=== PATIENT | male | born 1960 | race Caucasian/White ===

== ENCOUNTER 2018-03-13 22:01 | Inpatient (IN) | payer SELFPAY ==
[~2018-03-13] VITALS: Ht 175.3 cm; Wt 70.9 kg
[2018-03-14] VITALS (21 sets, daily range): BP systolic 124–234; BP diastolic 59–94; PULSE 58–83; RESP 11–23; TEMP 97.9–98.7; O2SAT 98–100
[2018-03-14] MEDS: SODIUM CHLOR 0.9% 1000 ML INJ 1,000 ML IV SCH ×3 (03:26→19:37)
--- NOTE | 2018-03-14 03:26 | HHI.HP ---
HPI Service Critical Care Medicine Primary Care Physician Non-Staff Admission Diagnosis Diagnosis: Travel History International Travel<30 Days: No Contact w/Intl Traveler <30 Da: No Traveled to Known Affected Are: No History of Present Illness 57-year-old gentleman with history of diabetes, coronary artery disease, dyslipidemia, hypertension, multiple CVAs, presented to emergency department at the [facility] with complaints of right-sided weakness and slurred speech. The patient has associated symptoms of 45 minutes of slurred speech that resolved on presentation to emergency department. His right-sided weakness also resolved. Per EMS and medical records reports the symptoms has resolved en rout to the hospital at [place]. Patient has been taking aspirin and Plavix. He denies any head trauma headaches, visual changes, fever, confusion, neurological deficit or any other symptoms. In emergency at [facility] he was found to be in acute renal failure with creatinine of 2.45 and potassium level of 6.9. He has been transferred to [facility] for higher level of care and nephrology consultation. Review of Systems Constitutional: DENIES: Diaphoretic episodes, Fatigue, Fever, Weight gain, Weight loss, Chills, Dizziness, Change in appetite, Night Sweats Endocrine: DENIES: Heat/cold intolerance, Polydipsia, Polyuria, Polyphagia Eyes: DENIES: Blurred vision, Diplopia, Eye inflammation, Eye pain, Vision loss , Photosensitivity, Double Vision Ears, nose, mouth, throat: DENIES: Tinnitus, Hearing loss, Vertigo, Nasal discharge, Oral lesions, Throat pain, Hoarseness, Ear Pain, Running Nose, Epistaxis, Sinus Pain, Toothache, Odynophagia Respiratory: DENIES: Apneas, Cough, Snoring, Wheezing, Hemoptysis, Sputum production, Shortness of breath Cardiovascular: DENIES: Chest pain, Palpitations, Syncope, Dyspnea on Exertion , PND, Lower Extremity Edema, Orthopnea, Claudication Gastrointestinal: DENIES: Abdominal pain, Black stools, Bloody stools, Constipation, Diarrhea, Nausea, Vomiting, Difficulty Swallowing, Anorexia Genitourinary: DENIES: Sexual dysfunction, Urinary frequency, Urinary incontinence, Urgency, Hematuria, Dysuria, Nocturia, Penile Discharge, Testicular Pain, Testicular Swelling Musculoskeletal: DENIES: Joint pain, Muscle aches, Stiffness, Joint Swelling, Back pain, Neck pain Integumentary: DENIES: Abnormal pigmentation, Nail changes, Pruritus, Rash Hematologic/lymphatic: DENIES: Bruising, Lymphadenopathy Immunologic/allergic: DENIES: Eczema, Urticaria Neurologic: COMPLAINS OF: Localized weakness, Speech Problems, Poor Balance, DENIES: Abnormal gait, Headache, Paresthesias, Seizures, Tremor Psychiatric: DENIES: Anxiety, Confusion, Mood changes, Depression, Hallucinations, Agitation, Suicidal Ideation, Homicidal Ideation, Delusions Past Family Social History Allergies: Coded Allergies: No Known Allergies (Verified Allergy, Unknown, 03/14/18) Past Medical History Diabetes mellitus Dyslipidemia Coronary artery disease -status post CABG Hypertension Chronic kidney insufficiency Past Surgical History CABG Appendectomy Reported Medications Aspirin Atorvastatin Carvedilol Cyproheptadine Fenofibrate Gabapentin Insulin Lantus Reglan [place]-3 Vitamin B Prozac Plavix Lisinopril [place] Active Ordered Medications Current Medications Medications (Trade) Dose Ordered Sig/Elias Route PRN Reason Start Time Stop Time Status Last Admin Dose Admin Sodium Chloride 1,000 ml @ 184 mls/hr Q5H27M IV 03/14/18 03:26 Sodium Chloride (NS Flush) 2 ml UNSCH PRN IV FLUSH FLUSH AFTER USING IV ACCESS 03/14/18 03:30 Sodium Chloride (NS Flush) 2 ml BID IV FLUSH 03/14/18 09:00 Acetaminophen (Tylenol) 650 mg Q6H PRN PO FEVER >101F 03/14/18 03:30 Oxycodone/ Acetaminophen (Percocet 5-325 Mg) 1 tab Q4H PRN PO PAIN SCALE 1 TO 5 03/14/18 03:30 03/14/18 04:17 Famotidine (Pepcid Inj) 10 mg Q12HR IV PUSH 03/14/18 09:00 Ondansetron HCl (Zofran Odt) 4 mg Q6H PRN PO NAUSEA OR VOMITING 03/14/18 04:00 Temazepam (Restoril) 15 mg HS PRN PO INSOMNIA 03/14/18 03:30 Albuterol/ Ipratropium (Duoneb Neb) 1 ampule Q2HR NEB PRN INH WHEEZING 03/14/18 03:30 Heparin Sodium (Porcine) (Heparin Inj) 5,000 units Q8H SQ 03/14/18 06:00 Miscellaneous Information [place] [place] 1 Q361D XX 03/14/18 03:30 Chlorhexidine Gluconate (Chlorhexidine 2% Cloth) 3 pack Taper DAILY@04 TOP 03/14/18 04:00 03/10/19 03:59 Chlorhexidine Gluconate (Chlorhexidine 2% Cloth) 3 pack UNSCH PRN TOP HYGIENIC CARE 03/14/18 03:30 Senna/Docusate Sodium (Sera-Colace) 1 tab BID PO 03/14/18 09:00 Magnesium Hydroxide (Milk Of Magnesia Liq) 30 ml Q12H PRN PO Mild constipation 03/14/18 03:30 Sennosides (Senokot) 17.2 mg Q12H PRN PO Moderate constipation 03/14/18 03:30 Bisacodyl (Dulcolax Supp) 10 mg DAILY PRN RECTAL SEVERE CONSITIPATION 03/14/18 03:30 Lactulose (Lactulose Liq) 30 ml DAILY PRN PO SEVERE CONSITIPATION 03/14/18 03:30 Dextrose (D50w (Vial) Inj) 50 ml UNSCH PRN IV PUSH HYPOGLYCEMIA-SEE COMMENTS 03/14/18 03:45 Glucagon (Glucagon Inj) 1 mg UNSCH PRN OTHER HYPOGLYCEMIA-SEE COMMENTS 03/14/18 03:45 Insulin Aspart (NovoLOG SUPPLEMENTAL SCALE) 1 ACHS SLIDING SCALE SQ 03/14/18 08:00 Labetalol HCl (Trandate Inj) 10 mg Q4H PRN IV PUSH SBP>160, DBP>90 03/14/18 04:15 03/14/18 04:31 Family History No family history significant of malignancy Social History Smokes cigarette occasionally Denies history of alcohol or illicit drug abuse Physical Exam Physical Exam GENERAL: Well-nourished, well-developed patient. SKIN: Warm and dry. HEAD: Normocephalic. EYES: No scleral icterus. No injection or drainage. NECK: Supple, trachea midline. No JVD or lymphadenopathy. CARDIOVASCULAR: Regular rate and rhythm without murmurs, gallops, or rubs. RESPIRATORY: Breath sounds equal bilaterally. No accessory muscle use. GASTROINTESTINAL: Abdomen soft, non-tender, nondistended. MUSCULOSKELETAL: No cyanosis, or edema. BACK: Nontender without obvious deformity. NEURO EXAM: GCS: 15 Mental Status: The patient is alert and oriented to person, place, and time with normal speech. Imaging CT head results from [facility] reviewed/no acute process identified Caprini VTE Risk Assessment Caprini VTE Risk Assessment: Mod/High Risk (score >= 2) Caprini Risk Assessment Model Point Value = 1 Point Value = 2 Point Value = 3 Point Value = 5 Age 41-60 Minor surgery BMI > 25 kg/m2 Swollen legs Varicose veins or History of unexplained or recurrent spontaneous Oral contraceptives or hormone replacement Sepsis (< 1 month) Serious lung disease, including pneumonia (< 1 month) Abnormal pulmonary function Acute myocardial infarction Congestive heart failure (< 1 month) History of inflammatory bowel disease Medical patient at bed rest Age 61-74 Arthroscopic surgery Major open surgery (> 45 min) Laparoscopic surgery (> 45 min) Malignancy Confined to bed (> 72 hours) Immobilizing plaster cast Central venous access Age >= 75 History of VTE Family history of VTE Factor V Leiden Prothrombin [id number] Lupus anticoagulant Anticardiolipin antibodies Elevated serum homocysteine Heparin-induced thrombocytopenia Other congenital or acquired thrombophilia Stroke (< 1 month) Elective arthroplasty Hip, pelvis, or leg fracture Acute spinal cord injury (< 1 month) Prophylaxis Regimen Total Risk Factor Score Risk Level Prophylaxis Regimen 0-1 Low Early ambulation 2 Moderate Order ONE of the following: *Sequential Compression Device (SCD) *Heparin 5000 units SQ BID 3-4 Higher Order ONE of the following medications: *Heparin 5000 units SQ TID *Enoxaparin/Lovenox 40 mg SQ daily (WT < 150 kg, CrCl > 30 mL/min) *Enoxaparin/Lovenox 30 mg SQ daily (WT < 150 kg, CrCl > 10-29 mL/min) *Enoxaparin/Lovenox 30 mg SQ BID (WT < 150 kg, CrCl > 30 mL/min) AND/OR *Sequential Compression Device (SCD) 5 or more Highest Order ONE of the following medications: *Heparin 5000 units SQ TID (Preferred with Epidurals) *Enoxaparin/Lovenox 40 mg SQ daily (WT < 150 kg, CrCl > 30 mL/min) *Enoxaparin/Lovenox 30 mg SQ daily (WT < 150 kg, CrCl > 10-29 mL/min) *Enoxaparin/Lovenox 30 mg SQ BID (WT < 150 kg, CrCl > 30 mL/min) AND *Sequential Compression Device (SCD) Assessment and Plan Assessment and Plan Acute kidney injury -With hyperkalemia -Admit to ICU -EKG stat -Aggressive IV fluid hydration -Repeat labs -Nephrology consultation CVA/TIA -Aspirin, Plavix, atorvastatin -MRI brain -Neurology consultation Diabetes mellitus -Insulin sliding scale -Resume home regiment of Lantus when dosing available Hypertension -Continue carvedilol -Hold lisinopril due to acute renal failure with hyperkalemia Coronary artery disease -Aspirin -Atorvastatin -Plavix Peripheral vascular disease -Cyproheptadine Dyslipidemia -Fenofibrate -Atorvastatin Neuropathy -Gabapentin DVT GI prophylaxis -Juan's and SCDs -Subcu heparin -Pepcid Critical Care: The total critical care time was 35 minutes. Time to perform other separately billable procedures was not included in the critical care time. Ken Lombardo MD March 14, 2018 03:25
[2018-03-14] MEDS ORDERED: LACTULOSE SYRUP 20 GM/30 ML CUP PO PRN (03:30)
[2018-03-14] MEDS ORDERED: MAGNESIUM HYDROXIDE SUSP 30 ML CUP PO PRN (03:30)
[2018-03-14] MEDS ORDERED: SODIUM CHLORIDE 0.9% FLUSH 10 ML FLUSH IV FLUSH PRN (03:30)
[2018-03-14] MEDS ORDERED: ACETAMINOPHEN 325 MG TAB PO PRN (03:30)
[2018-03-14] MEDS ORDERED: SENNOSIDES 8.6 MG TAB PO PRN (03:30)
[2018-03-14] MEDS ORDERED: TEMAZEPAM 15 MG CAP PO PRN (03:30)
[2018-03-14] MEDS ORDERED: BISACODYL 10 MG SUPP RECTAL PRN (03:30)
[2018-03-14] MEDS ORDERED: NURSING INFORMATION XX SCH (03:30)
[2018-03-14] MEDS ORDERED: RESP: ALBUTEROL 2.5 MG/IPRATROPIUM 0.5 MG NEB (PRN) INH (03:30)
[2018-03-14] MEDS ORDERED: CHLORHEXIDINE GLUCONATE 2 % 1 PACK (2 CLOTHS) TOP PRN (03:30)
[2018-03-14] MEDS ORDERED: SODIUM BICARBONATE 8.4% INJ 50 MEQ/50 ML SYR IV PUSH ONE (03:45)
[2018-03-14] MEDS ORDERED: DEXTROSE 50% IN WATER 50 ML VIAL(D50) IV PUSH ONE (03:45)
[2018-03-14] MEDS ORDERED: INSULIN HUMAN REGULAR 1,000 UNITS/10 ML VIAL IV PUSH ONE (03:45)
[2018-03-14] MEDS ORDERED: DEXTROSE 50% IN WATER 50 ML VIAL(D50) IV PUSH PRN (03:45)
[2018-03-14] MEDS ORDERED: SODIUM POLYSTYRENE SULFONATE SUSP 15 GM/60 ML CUP PO ONE (03:45)
[2018-03-14] MEDS ORDERED: GLUCAGON 1 MG/ML VIAL OTHER PRN (03:45)
[2018-03-14] MEDS ORDERED: CALCIUM GLUCONATE INJ 2 GM in DEXTROSE 5% IN WATER 100ML INJ 100 ML IV ONE ×2 (03:45)
[2018-03-14] MEDS ORDERED: ONDANSETRON ODT 4 MG TAB PO PRN (04:00)
[2018-03-14] MEDS: CHLORHEXIDINE GLUCONATE 2 % 1 PACK (2 CLOTHS) TOP SCH (04:00)
[2018-03-14 04:08] LABS: AUTOMATED NEUTROPHIL # 3.6 TH/MM3 (1.8-7.7); BASOPHIL % 0.8 % (0.0-2.0); EOSINOPHIL # 0.3 TH/MM3 (0-0.4); EOSINOPHIL % 4.4 % (0.0-4.0); HEMATOCRIT 37.9 % (39.0-51.0); HEMOGLOBIN 12.8 GM/DL (13.0-17.0); LYMPH % 26.7 % (9.0-44.0); LYMPHOCYTE # 1.6 TH/MM3 (1.0-4.8); MEAN CELL VOLUME 91.8 FL (80.0-100.0); MEAN CORPUSCULAR HGB CONC 33.7 % (32.0-36.0); MEAN PLATELET VOLUME 8.9 FL (7.0-11.0); MONO % 9.4 % (0.0-8.0); MONOCYTE # 0.6 TH/MM3 (0-0.9); NEUT % 58.7 % (16.0-70.0); PLATELET COUNT 175 TH/MM3 (150-450); RED BLOOD COUNT 4.13 MIL/MM3 (4.50-5.90); RED CELL DISTRIBUTION WIDTH 13.5 % (11.6-17.2); WHITE BLOOD COUNT 6.2 TH/MM3 (4.0-11.0)
[2018-03-14] MEDS ORDERED: cloNIDine HCL 0.1 MG TAB PO ONE (04:15)
[2018-03-14] MEDS: oxyCODONE/ACETAMINOPHEN 5 MG/325 MG TAB PO PRN ×6 (04:17→23:35)
[2018-03-14 04:20] LABS: BILIRUBIN, URINE NEG (NEG); BLOOD, URINE NEG (NEG); GLUCOSE,URINE 1000 mg/dL (NEG); KETONE, URINE 10 mg/dL (NEG); NITRITE,URINE NEG (NEG); URINE COLOR LIGHT-YELLOW (YELLW/STRAW); URINE LEUKOCYTE ESTERASE NEG (NEG)
[2018-03-14 04:31] LABS: ALBUMIN 3.4 GM/DL (3.4-5.0); ALT (GPT) 19 U/L (12-78); AST (GOT) 11 U/L (15-37); BICARBONATE 22.6 MEQ/L (21.0-32.0); BLOOD UREA NITROGEN 37 MG/DL (7-18); CALCIUM 8.2 MG/DL (8.5-10.1); CHLORIDE 107 MEQ/L (98-107); CREATININE 1.92 MG/DL (0.60-1.30); GLOMERULAR FILTRATION RATE 37 ML/MIN (>89); GLUCOSE,RANDOM 305 MG/DL (74-106); PHOSPHORUS 2.7 MG/DL (2.5-4.9); SODIUM (NA) 140 MEQ/L (136-145)
[2018-03-14] MEDS: LABETALOL HCL 100 MG/20 ML VIAL IV PUSH PRN (04:31)
[2018-03-14 04:33] LABS: ALKALINE PHOSPHATASE 42 U/L (45-117); TOTAL BILIRUBIN ADULT 0.3 MG/DL (0.2-1.0); TOTAL PROTEIN 6.1 GM/DL (6.4-8.2)
[2018-03-14] MEDS: HEPARIN SODIUM - SQ 10,000 UNITS/ML VIAL SQ SCH ×3 (06:09→20:09)
[2018-03-14] MEDS: INSULIN ASPART SUPPLEMENTAL SCALE SQ SCH ×5 (06:15→20:13)
--- NOTE | 2018-03-14 07:52 | PD.CONS ---
[facility] Service Nephrology Consult Requested By Dr. Lombardo Reason for Consult Acute and chronic kidney disease Primary Care Physician Non-Staff History of Present Illness Patient is a 57-year-old white male who has been transferred from [facility], he presented with right-sided weakness and strokelike symptoms, he stated that he had a previous stroke involving the right side and has right hemiparesis, numbness, patient states he has been diabetic since age 18, he has diabetic retinopathy and peripheral neuropathy as well, he states his primary care physician mentioned above slight abnormalities in the kidney function, he has not seen any specialist, he is passing urine he denies any dysuria or burning or kidney stones. His creatinine was 2.45 and potassium of 6.9 with declined to creatinine of 1.9 and potassium of 4.2. He received calcium gluconate, D50, insulin, Kayexalate. Review of Systems Constitutional: COMPLAINS OF: Fatigue Endocrine: DENIES: Heat/cold intolerance, Polydipsia, Polyuria, Polyphagia Eyes: DENIES: Blurred vision, Diplopia, Eye inflammation, Eye pain, Vision loss , Photosensitivity, Double Vision Ears, nose, mouth, throat: DENIES: Tinnitus, Hearing loss, Vertigo, Nasal discharge, Oral lesions, Throat pain, Hoarseness, Ear Pain, Running Nose, Epistaxis, Sinus Pain, Toothache, Odynophagia Cardiovascular: DENIES: Chest pain, Palpitations, Syncope, Dyspnea on Exertion , PND, Lower Extremity Edema, Orthopnea, Claudication Gastrointestinal: DENIES: Abdominal pain, Black stools, Bloody stools, Constipation, Diarrhea, Nausea, Vomiting, Difficulty Swallowing, Anorexia Genitourinary: DENIES: Sexual dysfunction, Urinary frequency, Urinary incontinence, Urgency, Hematuria, Dysuria, Nocturia, Penile Discharge, Testicular Pain, Testicular Swelling Musculoskeletal: COMPLAINS OF: Muscle aches, Stiffness Integumentary: COMPLAINS OF: Abnormal pigmentation (Depigmentation and leg) Hematologic/lymphatic: DENIES: Bruising, Lymphadenopathy Immunologic/allergic: DENIES: Eczema, Urticaria Neurologic: COMPLAINS OF: Localized weakness, Paresthesias Psychiatric: COMPLAINS OF: Anxiety Past Family Social History Allergies: Coded Allergies: No Known Allergies (Verified Allergy, Unknown, 03/14/18) Past Medical History Insulin-dependent diabetes since age 18 Hypertension Hyperlipidemia Coronary artery disease Diabetic retinopathy Peripheral neuropathy Right CVA with paresthesia Chronic kidney disease Past Surgical History Coronary artery bypass graft in his 40s Appendectomy Eye surgery Reported Medications Aspirin Atorvastatin Carvedilol Cyproheptadine Fenofibrate Gabapentin Insulin Lantus Reglan [place]-3 Vitamin B Prozac Plavix Lisinopril [place] Active Ordered Medications Current Medications Medications (Trade) Dose Ordered Sig/Elias Route Start Time Stop Time Status Last Admin Sodium Chloride 1,000 ml @ 184 mls/hr Q5H27M IV 03/14/18 03:26 03/14/18 03:26 (NS Flush) 2 ml UNSCH PRN IV FLUSH 03/14/18 03:30 (NS Flush) 2 ml BID IV FLUSH 03/14/18 09:00 (Tylenol) 650 mg Q6H PRN PO 03/14/18 03:30 (Percocet 5-325 Mg) 1 tab Q4H PRN PO 03/14/18 03:30 03/14/18 04:17 (Pepcid Inj) 10 mg Q12HR IV PUSH 03/14/18 09:00 (Zofran Odt) 4 mg Q6H PRN PO 03/14/18 04:00 (Restoril) 15 mg HS PRN PO 03/14/18 03:30 (Duoneb Neb) 1 ampule Q2HR NEB PRN INH 03/14/18 03:30 (Heparin Inj) 5,000 units Q8H SQ 03/14/18 06:00 03/14/18 06:09 ([facility] [place] Nursing Information) 1 Q361D XX 03/14/18 03:30 (Chlorhexidine 2% Cloth) 3 pack Taper DAILY@04 TOP 03/14/18 04:00 03/10/19 03:59 03/14/18 04:00 (Chlorhexidine 2% Cloth) 3 pack UNSCH PRN TOP 03/14/18 03:30 (Sera-Colace) 1 tab BID PO 03/14/18 09:00 (Milk Of Magnesia Liq) 30 ml Q12H PRN PO 03/14/18 03:30 (Senokot) 17.2 mg Q12H PRN PO 03/14/18 03:30 (Dulcolax Supp) 10 mg DAILY PRN RECTAL 03/14/18 03:30 (Lactulose Liq) 30 ml DAILY PRN PO 03/14/18 03:30 (D50w (Vial) Inj) 50 ml UNSCH PRN IV PUSH 03/14/18 03:45 (Glucagon Inj) 1 mg UNSCH PRN OTHER 03/14/18 03:45 (NovoLOG SUPPLEMENTAL SCALE) 1 ACHS SLIDING SCALE SQ 03/14/18 08:00 03/14/18 06:18 (Trandate Inj) 10 mg Q4H PRN IV PUSH 03/14/18 04:15 03/14/18 04:31 (Aspirin) 325 mg DAILY PO 03/14/18 09:00 (Plavix) 75 mg DAILY PO 03/14/18 09:00 (Lipitor) 40 mg HS PO 03/14/18 21:00 (Norvasc) 10 mg DAILY PO 03/14/18 09:00 (Coreg) 6.25 mg Q12HR PO 03/14/18 09:00 Family History Noncontributory Social History Smokes cigarettes about half pack per day denies alcohol Physical Exam Vital Signs Vital Signs Date Time Temp Pulse Resp B/P (MAP) Pulse Ox O2 Delivery O2 Flow Rate FiO2 03/14/18 06:00 83 03/14/18 06:00 98.0 83 23 207/93 (131) 100 03/14/18 05:31 16 03/14/18 05:00 98.2 68 18 172/75 (107) 98 03/14/18 04:00 80 03/14/18 04:00 97.9 80 20 234/94 (140) 99 Physical Exam GENERAL: Well-nourished, well-developed patient. SKIN: Warm and dry. HEAD: Normocephalic. EYES: No scleral icterus. No injection or drainage. NECK: Supple, trachea midline. No JVD or lymphadenopathy. CARDIOVASCULAR: Regular rate and rhythm without murmurs, gallops, or rubs. RESPIRATORY: Breath sounds equal bilaterally. No accessory muscle use. GASTROINTESTINAL: Abdomen soft, non-tender, nondistended. EXTREMITIES: No cyanosis, or edema. NEUROLOGICAL: Awake, alert, and oriented x 3. Right side numbness Laboratory Laboratory Tests Test 03/14/18 03:20 03/14/18 04:00 03/14/18 04:10 Nasal Screen MRSA (PCR) MRSA NOT DETECTED White Blood Count 6.2 Red Blood Count 4.13 Hemoglobin 12.8 Hematocrit 37.9 Mean Corpuscular Volume 91.8 Mean Corpuscular Hemoglobin 31.0 Mean Corpuscular Hemoglobin Concent 33.7 Red Cell Distribution Width 13.5 Platelet Count 175 Mean Platelet Volume 8.9 Neutrophils (%) (Auto) 58.7 Lymphocytes (%) (Auto) 26.7 Monocytes (%) (Auto) 9.4 Eosinophils (%) (Auto) 4.4 Basophils (%) (Auto) 0.8 Neutrophils # (Auto) 3.6 Lymphocytes # (Auto) 1.6 Monocytes # (Auto) 0.6 Eosinophils # (Auto) 0.3 Basophils # (Auto) 0.0 CBC Comment DIFF FINAL Differential Comment Blood Urea Nitrogen 37 Creatinine 1.92 Random Glucose 305 Total Protein 6.1 Albumin 3.4 Calcium Level 8.2 Phosphorus Level 2.7 Magnesium Level 2.0 Alkaline Phosphatase 42 Aspartate Amino Transf (AST/SGOT) 11 Alanine Aminotransferase (ALT/SGPT) 19 Total Bilirubin 0.3 Sodium Level 140 Potassium Level 4.2 Chloride Level 107 Carbon Dioxide Level 22.6 Anion Gap 10 Estimat Glomerular Filtration Rate 37 Urine Color LIGHT-YELLOW Urine Turbidity CLEAR Urine pH 6.0 Urine Specific [place] 1.012 Urine Protein NEG Urine Glucose (UA) 1000 Urine Ketones 10 Urine Occult Blood NEG Urine Nitrite NEG Urine Bilirubin NEG Urine Urobilinogen LESS THAN 2.0 Urine Leukocyte Esterase NEG Urine RBC LESS THAN 1 Microscopic Urinalysis Comment CULT NOT INDICATED Result Diagram: 03/14/1839903/14/18399 Assessment and Plan Problem List: (1) CKD (chronic kidney disease) stage 3, GFR 30-59 ml/min ICD Codes: N18.3 - Chronic kidney disease, stage 3 (moderate) Plan: Patient creatinine declined, with IV hydration cut back normal saline 100 cc an hour He may have diabetic kidney disease Check baseline kidney ultrasound [place] serum complement protein electrophoresis ordered Monitor blood glucose and blood pressure (2) Hyperkalemia ICD Codes: E87.5 - Hyperkalemia Status: Resolved Plan: This has resolved (3) Hypertension ICD Codes: I10 - Essential (primary) hypertension Plan: Continue to monitor (4) Diabetes ICD Codes: E11.9 - Type 2 diabetes mellitus without complications Status: Chronic Plan: On insulin Problem Qualifiers (1) Hypertension: Qualified Codes: I10 - Essential (primary) hypertension (2) Diabetes: Elizabeth Lowery MD March 14, 2018 07:52
[2018-03-14] MEDS: SODIUM CHLORIDE 0.9% FLUSH 10 ML FLUSH IV FLUSH SCH ×2 (08:15→20:09)
[2018-03-14] MEDS: CLOPIDOGREL 75 MG TAB PO SCH (08:15)
[2018-03-14] MEDS: FAMOTIDINE 20 MG/2 ML VIAL IV PUSH SCH ×2 (08:15→20:08)
[2018-03-14] MEDS: CARVEDILOL 6.25 MG TAB PO SCH ×2 (08:15→20:09)
[2018-03-14] MEDS: DOCUSATE SODIUM 50 MG/SENNA 8.6 MG TAB PO SCH ×2 (08:15→20:09)
[2018-03-14] MEDS: ASPIRIN 325 MG TAB PO SCH (08:15)
[2018-03-14 10:33] LABS: COMPLEMENT C4 22 MG/DL (10-40)
--- NOTE | 2018-03-14 11:43 | RADRPT ---
EXAM DATE: 03/14/2018 11:29 AM EDT AGE/SEX: 57 years / Male INDICATIONS: Increased BUN/Creatinine. CLINICAL DATA: This is the patient's initial encounter. Patient reports that signs and symptoms have been present for 1 day and indicates a pain score of 0/10. MEDICAL/SURGICAL HISTORY: Hypertension. Diabetes. Cerebrovascular Accident. Migraine. Neuropat hy. Myocardial infarction. CABG. COMPARISON: No prior [facility] exams available for comparison. No external comparison. MEASUREMENTS: Right Kidney:__ 11.2 x 4.8 x 4.0 cm cm Left Kidney:__ 10.6 x 3.8 x5.2 cm cm FINDINGS: Right Kidney: Normal in size, shape and echogenicity. No hydronephrosis. Left Kidney: Normal in size, shape and echogenicity. No hydronephrosis. There is some focal cortical scarring along the mid to upper pole. Incidental finding of a splenule adjacent to the spleen measuri ng 2.6 cm. Bladder: Within normal limits given the degree of distension. The prostate appears to be diffusely en larged measuring 5.2 x 4.8 cm. CONCLUSION: 1. No evidence of hydronephrosis. 2. There appears to be some focal cortical scarring involving the mid to upper pole the left kidney. If clinically indicated, CT scan of the abdomen could be performed for further evaluation with IV co ntrast. This could be performed on a nonemergent outpatient basis. 3. Diffuse enlargement of the prostate gland. Electronically signed by: Ishmael Bahena MD 03/14/2018 11:42 AM EDT
--- NOTE | 2018-03-14 13:52 | MB ---
cc: Reyna Curry MD DATE: 03/14/2018 REASON FOR CONSULTATION: Possible stroke. HISTORY OF PRESENT ILLNESS: The patient is a 57-year-old man with history of diabetes, heart disease, hyperlipidemia, hypertension, he had 2 strokes, 1 in 09/2017 and then in 10/2017, with a history of carotid stenosis 50% on one side and 70% on the other side. He cannot tell me which is which. Apparently, he was at [facility]. He does take aspirin and Plavix. He was found to be in renal failure and was transferred here. The patient has had residual right-sided weakness to the point where he is now learning to do more with his right arm and right leg. The weakness seems to be at baseline. Currently, his speech is at baseline as well. His is present. No significant family history. SOCIAL HISTORY: He smokes on occasion. No illicit alcohol or drugs. He does take baby aspirin and Plavix. PHYSICAL EXAMINATION: VITAL SIGNS: Temperature is 98.7, pulse 61, respiratory rate 12, blood pressure 156/72, sating 100% on room air. NECK: Supple. I do not appreciate any bruits. HEART: Regular. NEURO: Awake and alert. Speech is intact. Pupils reactive. Visual lennon are full. His face is symmetrical. Tongue midline. MOTOR: There is some mild weakness 4/5 in both arm and leg. Sensory seems to be intact to painful stimuli. He is slower on [id number] on the right. DTRs are brisker on the right. Toes withdraws. Gait is withheld at this time. LABORATORY DATA: Reviewed. Hemoglobin is 12.8. Coags are not done. BUN 37, creatinine 1.92. His GFR is 37, glucose 305, calcium 8.2. Electrophoresis has been ordered and is pending. Urine 1000 glucose and 10 ketones. IMAGING: Renal ultrasound was done only. I do not have any imaging of the head. Ultrasound shows no hydronephrosis, some focal cortical scarring in the mid upper pole of the left kidney, diffuse enlargement of the prostate. IMPRESSION: Stroke-like symptoms. Certainly rule out a new stroke. We will get an MRI of the brain [place]. Check a carotid ultrasound. Keep him on aspirin and Plavix for the interim. PT, OT. Continue treatments per nephrology. Continue him on his statin as well. Depending on what the carotid ultrasound shows, we may need to get vascular surgery involved. No CT angiogram can be done because of his renal parameters at this time. Continue current care. Further recommendations to be made. MD ZARIA Bunn/BRITTON , 01:32 PM , 01:52 PM
--- NOTE | 2018-03-14 14:35 | EKG ---
Date Performed: 03/14/2018 Time Performed: 04:24:34 PTAGE: 57 years EKG: Marked baseline artifact Sinus rhythm . Possible anteroseptal infarct - age undetermined Abnormal ECG NO PREVIOUS TRACING DOCTOR: Jerel Barrera Interpretating Date/Time 03/14/2018 14:33:56
--- NOTE | 2018-03-14 16:08 | RADRPT ---
EXAM DATE: 03/14/2018 3:58 PM EDT AGE/SEX: 57 years / Male INDICATIONS: CVA. CLINICAL DATA: This is the patient's initial encounter. Patient reports that signs and symptoms have been present for 2 days and indicates a pain score of 0/10. MEDICAL/SURGICAL HISTORY: Hypertension. Diabetes mellitus type II. CABG. Appendectomy. COMPARISON: [facility] [place], MRI BRAIN W/O CONTRAST, 03/14/2018. . TECHNIQUE: 3D [id number] MRA was performed. Source images, multiplanar STS MIP, and 3D volum e MIP reconstructions were reviewed. FINDINGS: There is excellent visualization of the major intracranial arteries out to the second-o rder branch vessels. There is no evidence for aneurysm, vessel truncation or stenosis, and no eviden ce for vascular malformation. There is however complete occlusion of the right internal carotid arter y. There is cross-filling from the anterior communicating artery. There is a patent right posterior c ommunicating artery. CONCLUSION: 1. Occlusion of the right internal carotid artery. 2. Unremarkable MRA of the brain. Electronically signed by: Ishmael Bahena MD 03/14/2018 4:01 PM EDT
--- NOTE | 2018-03-14 16:16 | RADRPT ---
EXAM DATE: 03/14/2018 4:03 PM EDT AGE/SEX: 57 years / Male INDICATIONS: CVA. CLINICAL DATA: This is the patient's initial encounter. Patient reports that signs and symptoms have been present for 2 days and indicates a pain score of 0/10. MEDICAL/SURGICAL HISTORY: Diabetes mellitus type II. Hypertension. Renal insufficiency, chron ic. CABG. Appendectomy. COMPARISON: No prior [facility] exams available for comparison. TECHNIQUE: Multiplanar, multisequence examination of the brain was performed without contrast. FINDINGS: Cerebrum: The ventricles are normal for age. There is bilateral cortical atrophy. No evidence of mi dline shift, mass lesion. There Appears to be a small subacute area of infarction involving the left mid parietal lobe. There is some mild restricted diffusion in this location along with some increased signal on the FLAIR T2-weighted axial images. The SWI images show possible small microhemorrhage in the left occipital lobe. No extraaxial fluid collections are seen. The pituitary gland and suprasell ar cistern are normal in configuration. White Matter: Multiple high signal spots are seen throughout the white matter tracts bilaterally sug gestive of ischemic demyelinization. Posterior Fossa: On the axial SWI images there is decreased signal involving the superior left cerebe llar hemisphere suggestive of microhemorrhages. No increased signal seen on the FLAIR-weighted images . No abnormal signal seen in the diffusion images. The area measures 3.6 x 2.0 cm. The 4th ventricle is midline. The cerebellopontine angle is unremarkable. The cerebellar tonsils are normal in posit ion. Diffusion Imaging: Focal mild area of restricted diffusion in the mid left parietal lobe adjacent to the left lateral ventricle. This is most likely a subacute infarct. This correlates with high signal on the axial T2-weighted FLAIR images. Extracranial: The visualized portions of the orbits and paranasal sinuses are unremarkable. CONCLUSION: 1. Findings suggest a focal subacute nonhemorrhagic infarct involving the left mid parietal lobe. 2. Decreased signal along the superior left cerebellar hemisphere on the SWI images suggestive of mi crohemorrhage in an area measuring 3.6 x 2.0 cm. 3. Possible small punctate microhemorrhage in the left occipital lobe. 4. Chronic white matter changes bilaterally suggestive of ischemic demyelinization. 5. Bilateral cortical atrophy. Electronically signed by: Ishmael Bahena MD 03/14/2018 4:15 PM EDT
[2018-03-14] MEDS ORDERED: LANTUS2P SQ (19:28)
[2018-03-14] MEDS ORDERED: GABA300C5 PO (19:28)
[2018-03-14] MEDS ORDERED: ATOR80TA45 PO (19:28)
[2018-03-14] MEDS ORDERED: HUMALOG SQ (19:28)
[2018-03-14] MEDS ORDERED: CLOP75TA PO (19:28)
[2018-03-14] MEDS ORDERED: FENO160T PO (19:28)
[2018-03-14] MEDS ORDERED: METO5TAB PO (19:28)
[2018-03-14] MEDS ORDERED: HYDR-3583 PO (19:28)
[2018-03-14] MEDS ORDERED: CYPR4TAB PO (19:28)
[2018-03-14] MEDS ORDERED: CARV25TA (19:28)
[2018-03-14] MEDS ORDERED: ASPI-183 PO (19:28)
[2018-03-14] MEDS ORDERED: OMEGCAP PO (19:28)
[2018-03-14] MEDS ORDERED: LISI10TA3 PO (19:28)
[2018-03-14] MEDS ORDERED: FLUO20CA12 PO (19:28)
[2018-03-14] MEDS: ATORVASTATIN 40 MG TAB PO SCH (20:09)
[2018-03-14] MEDS: cloNIDine HCL 0.2 MG TAB PO PRN (22:07)
[2018-03-14 22:25] LABS: ALB/GLOB RATIO (SPE) 2.19 (1.39-2.23)
[2018-03-15] VITALS (11 sets, daily range): BP systolic 156–196; BP diastolic 70–88; PULSE 55–70; RESP 10–17; TEMP 97.8–98.5; O2SAT 98–100
--- NOTE | 2018-03-15 00:03 | RADRPT ---
EXAM DATE: 03/14/2018 11:20 PM EDT AGE/SEX: 57 years / Male INDICATIONS: Right sided weakness. Slurred speech. History of multiple CVA's. CLINICAL DATA: This is the patient's initial encounter. Patient reports that signs and symptoms have been present for 3 days and indicates a pain score of 0/10. MEDICAL/SURGICAL HISTORY: Diabetes. Hypertension. Cerebrovascular accident. Migraines. Myocard ial infarction. Paresthesia. Neuropathy. Hyperlilpidemia. Coronary artery disease. Chronic kidney ins ufficiency. Anticoagulant therapy. CABG. Appendectomy. COMPARISON: No prior [facility] exams available for comparison. No external comparison. VELOCITY PARAMETERS: ICA/CCA Ratio: Right 0 , Left 0.9 ICA: Right 0 cm/sec, Left 97 cm/sec CCA: Right 101 cm/sec, Left 110 cm/sec ECA: Right 127 cm/sec, Left 137 cm/sec Vertebral: Right 55 cm/sec antegrade, Left 65 cm/sec antergrade FINDINGS: Right Carotid: The right internal carotid artery is occluded and demonstrates no color flow or wavef orm. The common carotid artery and external carotid artery are widely patent and demonstrate normal w aveform. Left Carotid: No significant stenosis is visualized. The waveforms are within normal limits. Other: None. CONCLUSION: 1. Right Internal Carotid Artery: Occluded. 2. Left Internal Carotid Artery: Patent. Electronically signed by: Alexi Lara MD 03/15/2018 12:02 AM EDT
[2018-03-15] MEDS: CHLORHEXIDINE GLUCONATE 2 % 1 PACK (2 CLOTHS) TOP SCH (04:00)
[2018-03-15] MEDS: oxyCODONE/ACETAMINOPHEN 5 MG/325 MG TAB PO PRN ×2 (04:07→08:24)
[2018-03-15 04:25] LABS: AUTOMATED NEUTROPHIL # 3.7 TH/MM3 (1.8-7.7); BASOPHIL # 0.1 TH/MM3 (0-0.2); BASOPHIL % 0.9 % (0.0-2.0); EOSINOPHIL # 0.4 TH/MM3 (0-0.4); EOSINOPHIL % 5.7 % (0.0-4.0); HEMATOCRIT 39.4 % (39.0-51.0); HEMOGLOBIN 13.2 GM/DL (13.0-17.0); LYMPH % 26.6 % (9.0-44.0); LYMPHOCYTE # 1.7 TH/MM3 (1.0-4.8); MEAN CELL VOLUME 91.2 FL (80.0-100.0); MEAN CORPUSCULAR HEMOGLOBIN 30.6 PG (27.0-34.0); MEAN CORPUSCULAR HGB CONC 33.6 % (32.0-36.0); MEAN PLATELET VOLUME 8.5 FL (7.0-11.0); MONO % 8.5 % (0.0-8.0); MONOCYTE # 0.5 TH/MM3 (0-0.9); NEUT % 58.3 % (16.0-70.0); PLATELET COUNT 195 TH/MM3 (150-450); RED BLOOD COUNT 4.32 MIL/MM3 (4.50-5.90); RED CELL DISTRIBUTION WIDTH 13.5 % (11.6-17.2); WHITE BLOOD COUNT 6.4 TH/MM3 (4.0-11.0)
[2018-03-15 04:54] LABS: ALBUMIN 3.7 GM/DL (3.4-5.0); AST (GOT) 15 U/L (15-37); BICARBONATE 22.3 MEQ/L (21.0-32.0); BLOOD UREA NITROGEN 25 MG/DL (7-18); CALCIUM 8.6 MG/DL (8.5-10.1); CHLORIDE 112 MEQ/L (98-107); CREATININE 1.46 MG/DL (0.60-1.30); GLOMERULAR FILTRATION RATE 50 ML/MIN (>89); GLUCOSE,RANDOM 56 MG/DL (74-106); SODIUM (NA) 144 MEQ/L (136-145)
[2018-03-15 04:57] LABS: ALKALINE PHOSPHATASE 42 U/L (45-117); ALT (GPT) 21 U/L (12-78); PHOSPHORUS 2.5 MG/DL (2.5-4.9); TOTAL BILIRUBIN ADULT 0.3 MG/DL (0.2-1.0); TOTAL PROTEIN 6.4 GM/DL (6.4-8.2)
[2018-03-15] MEDS: LABETALOL HCL 100 MG/20 ML VIAL IV PUSH PRN (05:23)
[2018-03-15] MEDS: HEPARIN SODIUM - SQ 10,000 UNITS/ML VIAL SQ SCH ×3 (05:24→20:17)
[2018-03-15] MEDS: CARVEDILOL 6.25 MG TAB PO SCH (08:24)
[2018-03-15] MEDS: CLOPIDOGREL 75 MG TAB PO SCH (08:24)
[2018-03-15] MEDS: ASPIRIN 325 MG TAB PO SCH (08:24)
[2018-03-15] MEDS: DOCUSATE SODIUM 50 MG/SENNA 8.6 MG TAB PO SCH ×2 (08:25→20:16)
[2018-03-15] MEDS: SODIUM CHLORIDE 0.9% FLUSH 10 ML FLUSH IV FLUSH SCH ×2 (08:25→20:25)
[2018-03-15] MEDS: FAMOTIDINE 20 MG/2 ML VIAL IV PUSH SCH ×2 (08:25→20:16)
[2018-03-15] MEDS: SODIUM CHLOR 0.9% 1000 ML INJ 1,000 ML IV SCH (08:26)
[2018-03-15] MEDS: INSULIN ASPART SUPPLEMENTAL SCALE SQ SCH ×4 (08:32→20:23)
[2018-03-15] MEDS ORDERED: CARVEDILOL 12.5 MG TAB PO ONE (10:30)
--- NOTE | 2018-03-15 10:46 | HHI.PR ---
Subjective Remarks The patient was eating breakfast. He said that his right-sided weakness is stable compared to his stroke during [place] time. He says he had new onset disorientation and speech difficulties. He says he always has balance problems. He does not walk with a walker. He says his blood pressure varies at home. His blood sugar level also varies at home. He complains of neuropathy pains. Discussed with nursing. Objective Vitals Vital Signs Date Time Temp Pulse Resp B/P (MAP) Pulse Ox O2 Delivery O2 Flow Rate FiO2 03/15/18 08:00 97.9 64 10 180/81 (114) 100 03/15/18 08:00 64 03/15/18 06:00 70 15 196/88 (124) 100 03/15/18 06:00 70 03/15/18 05:10 18 03/15/18 05:00 68 12 194/84 (120) 98 03/15/18 04:00 68 03/15/18 04:00 98.1 68 17 179/82 (114) 99 03/15/18 03:00 65 11 160/77 (104) 100 03/15/18 02:00 98.5 55 14 163/70 (101) 100 03/15/18 02:00 55 03/15/18 01:00 97.9 59 16 179/85 (116) 98 03/15/18 00:00 98.5 56 12 164/78 (106) 100 03/15/18 00:00 56 03/14/18 23:00 58 14 164/75 (104) 99 03/14/18 22:00 69 15 194/90 (124) 99 03/14/18 22:00 69 03/14/18 21:00 67 15 167/75 (105) 99 03/14/18 20:00 63 03/14/18 20:00 98.2 63 11 180/80 (113) 100 03/14/18 19:00 98.6 61 11 176/75 (108) 100 03/14/18 18:00 58 11 147/69 (95) 100 03/14/18 18:00 58 03/14/18 17:00 60 15 165/75 (105) 100 03/14/18 16:00 61 03/14/18 16:00 98.2 61 15 131/67 (88) 100 03/14/18 15:09 58 16 146/67 (93) 100 03/14/18 14:00 61 18 162/68 (99) 100 03/14/18 14:00 61 03/14/18 13:25 60 17 150/66 (94) 100 03/14/18 13:00 59 13 124/59 (80) 100 03/14/18 12:00 61 03/14/18 12:00 98.7 61 12 156/72 (100) 100 03/14/18 11:00 59 13 149/70 (96) 98 I/O 03/14/18 03/14/18 03/14/18 03/15/18 03/15/18 03/15/18 07:00 15:00 23:00 07:00 15:00 23:00 Intake Total 1000 ml 1000 ml Output Total 900 ml 1400 ml 2100 ml Balance -900 ml 1000 ml -400 ml -2100 ml Intake IV Total 1000 ml 1000 ml Output Urine Total 900 ml 1400 ml 2100 ml # Bowel Movements 0 0 0 Result Diagram: 03/15/185 03/15/18404 Imaging Last Impressions Renal Ultrasound 03/14/18 Signed Impressions: CONCLUSION: 1. No evidence of hydronephrosis. 2. There appears to be some focal cortical scarring involving the mid to upper pole the left kidney. If clinically indicated, CT scan of the abdomen could be performed for further evaluation with IV contrast. This could be performed on a nonemergent outpatient basis. 3. Diffuse enlargement of the prostate gland. Head Magnetic Resonance Angiography 03/14/18 Signed Impressions: CONCLUSION: 1. Occlusion of the right internal carotid artery. 2. Unremarkable MRA of the brain. Carotid Artery Ultrasound 03/14/18 Signed Impressions: CONCLUSION: 1. Right Internal Carotid Artery: Occluded. 2. Left Internal Carotid Artery: Patent. Brain MRI 03/14/18 Signed Impressions: CONCLUSION: 1. Findings suggest a focal subacute nonhemorrhagic infarct involving the left mid parietal lobe. 2. Decreased signal along the superior left cerebellar hemisphere on the SWI i mages suggestive of microhemorrhage in an area measuring 3.6 x 2.0 cm. 3. Possible small punctate microhemorrhage in the left occipital lobe. 4. Chronic white matter changes bilaterally suggestive of ischemic demyeliniza tion. 5. Bilateral cortical atrophy. Objective Remarks GENERAL: Well-nourished, well-developed patient. SKIN: Warm and dry. HEAD: Normocephalic. EYES: No scleral icterus. No injection or drainage. NECK: Supple, trachea midline. No JVD or lymphadenopathy. CARDIOVASCULAR: Regular rate and rhythm without murmurs, gallops, or rubs. RESPIRATORY: Breath sounds equal bilaterally. No accessory muscle use. GASTROINTESTINAL: Abdomen soft, non-tender, nondistended. MUSCULOSKELETAL: No cyanosis, or edema. BACK: Nontender without obvious deformity. NEURO: The patient is alert and oriented to person, place, and time with normal speech. Strength 5/5 in upper and lower extremities. + neuropathy in lower extremities. PSYCH: Mood and affect appropriate. A/P Assessment and Plan Acute CVA Brain MRI: Findings suggest a focal subacute nonhemorrhagic infarct involving the left mid parietal lobe; Decreased signal along the superior left cerebellar hemisphere suggestive of microhemorrhage in an area measuring 3.6 x 2.0 cm; Possible small punctate microhemorrhage in the left occipital lobe; Chronic white matter changes bilaterally suggestive of ischemic demyelinization. Imaging also revealed an occluded right internal carotid artery. Neurology consult appreciated. - continue Aspirin, Plavix and atorvastatin. - Vascular surgery consult requested. - blood pressure control. - telemetry. Acute kidney injury Improving with fluids. DM and HTN likely contributing to CKD. Hyperkalemia resolved. Nephrology consult appreciated. - IV fluid hydration. - avoid nephrotoxins. - BMP in AM. - follow up with nephrology. Diabetes mellitus Has type 1 diabetes. - Insulin sliding scale. - Levemir 10 units BID, adjust as needed. - increase gabapentin for neuropathy pain. Hypertension Poorly controlled. - Continue home dose of carvedilol and amlodipine. - Hold lisinopril due to acute renal failure with hyperkalemia. - clonidine as needed. Coronary artery disease/ PVD No chest pain at this time. - continue cardiac regimen. PPx: Heparin Discharge Planning Transfer to floor Alexi Baker DO March 15, 2018 10:46
--- NOTE | 2018-03-15 11:17 | PD.CAR.PN ---
CVT Progress Note Subjective/Hospital Course: 57-year-old male with occlusion of the right internal carotid artery and respective symptoms Based on MRI and ultrasound right internal carotid artery is occluded and therefore no surgical intervention is possible at this time In patients who have near occlusive disease and even a trace of a flow i.e. string sign, carotid endarterectomy is possible and clearly indicated however with full occlusion there is nothing to do other than systemically and symptomatically support the patient Full consult to follow Daniel J Objective: Vital Signs Date Time Temp Pulse Resp B/P (MAP) Pulse Ox O2 Delivery O2 Flow Rate FiO2 03/15/18 08:00 97.9 64 10 180/81 (114) 100 03/15/18 08:00 64 03/15/18 06:00 70 15 196/88 (124) 100 03/15/18 06:00 70 03/15/18 05:10 18 03/15/18 05:00 68 12 194/84 (120) 98 03/15/18 04:00 68 03/15/18 04:00 98.1 68 17 179/82 (114) 99 03/15/18 03:00 65 11 160/77 (104) 100 03/15/18 02:00 98.5 55 14 163/70 (101) 100 03/15/18 02:00 55 03/15/18 01:00 97.9 59 16 179/85 (116) 98 03/15/18 00:00 98.5 56 12 164/78 (106) 100 03/15/18 00:00 56 03/14/18 23:00 58 14 164/75 (104) 99 03/14/18 22:00 69 15 194/90 (124) 99 03/14/18 22:00 69 03/14/18 21:00 67 15 167/75 (105) 99 03/14/18 20:00 63 03/14/18 20:00 98.2 63 11 180/80 (113) 100 03/14/18 19:00 98.6 61 11 176/75 (108) 100 03/14/18 18:00 58 11 147/69 (95) 100 03/14/18 18:00 58 03/14/18 17:00 60 15 165/75 (105) 100 03/14/18 16:00 61 03/14/18 16:00 98.2 61 15 131/67 (88) 100 03/14/18 15:09 58 16 146/67 (93) 100 03/14/18 14:00 61 18 162/68 (99) 100 03/14/18 14:00 61 03/14/18 13:25 60 17 150/66 (94) 100 03/14/18 13:00 59 13 124/59 (80) 100 03/14/18 12:00 61 03/14/18 12:00 98.7 61 12 156/72 (100) 100 Labs: Laboratory Tests Test 03/15/18 04:05 White Blood Count 6.4 TH/MM3 (4.0-11.0) Red Blood Count 4.32 MIL/MM3 (4.50-5.90) Hemoglobin 13.2 GM/DL (13.0-17.0) Hematocrit 39.4 % (39.0-51.0) Mean Corpuscular Volume 91.2 FL (80.0-100.0) Mean Corpuscular Hemoglobin 30.6 PG (27.0-34.0) Mean Corpuscular Hemoglobin Concent 33.6 % (32.0-36.0) Red Cell Distribution Width 13.5 % (11.6-17.2) Platelet Count 195 TH/MM3 (150-450) Mean Platelet Volume 8.5 FL (7.0-11.0) Neutrophils (%) (Auto) 58.3 % (16.0-70.0) Lymphocytes (%) (Auto) 26.6 % (9.0-44.0) Monocytes (%) (Auto) 8.5 % (0.0-8.0) Eosinophils (%) (Auto) 5.7 % (0.0-4.0) Basophils (%) (Auto) 0.9 % (0.0-2.0) Neutrophils # (Auto) 3.7 TH/MM3 (1.8-7.7) Lymphocytes # (Auto) 1.7 TH/MM3 (1.0-4.8) Monocytes # (Auto) 0.5 TH/MM3 (0-0.9) Eosinophils # (Auto) 0.4 TH/MM3 (0-0.4) Basophils # (Auto) 0.1 TH/MM3 (0-0.2) CBC Comment DIFF FINAL Differential Comment Blood Urea Nitrogen 25 MG/DL (7-18) Creatinine 1.46 MG/DL (0.60-1.30) Random Glucose 56 MG/DL (74-106) Total Protein 6.4 GM/DL (6.4-8.2) Albumin 3.7 GM/DL (3.4-5.0) Calcium Level 8.6 MG/DL (8.5-10.1) Phosphorus Level 2.5 MG/DL (2.5-4.9) Magnesium Level 2.0 MG/DL (1.5-2.5) Alkaline Phosphatase 42 U/L (45-117) Aspartate Amino Transf (AST/SGOT) 15 U/L (15-37) Alanine Aminotransferase (ALT/SGPT) 21 U/L (12-78) Total Bilirubin 0.3 MG/DL (0.2-1.0) Sodium Level 144 MEQ/L (136-145) Potassium Level 3.6 MEQ/L (3.5-5.1) Chloride Level 112 MEQ/L (98-107) Carbon Dioxide Level 22.3 MEQ/L (21.0-32.0) Anion Gap 10 MEQ/L (5-15) Estimat Glomerular Filtration Rate 50 ML/MIN (>89) Result Diagram: 03/15/18 0405 03/15/18 0405 Branden Osborne MD March 15, 2018 11:16
[2018-03-15] MEDS: oxyCODONE/ACETAMINOPHEN 10 MG/325 MG TAB PO PRN ×3 (13:09→21:26)
[2018-03-15] MEDS: GABAPENTIN 300 MG CAP PO SCH ×2 (13:09→17:31)
[2018-03-15] MEDS: FLUoxetine HCL 20 MG CAP PO SCH (13:24)
[2018-03-15] MEDS: INSULIN DETEMIR 100 UNITS/ML VIAL SQ SCH ×2 (13:25→20:17)
[2018-03-15] MEDS: SODIUM CHLOR 0.45% 1000 ML INJ 1,000 ML IV SCH (13:27)
[2018-03-15] MEDS: cloNIDine HCL 0.2 MG TAB PO PRN (13:32)
--- NOTE | 2018-03-15 16:15 | HHI.NPPN ---
Subjective History of Present Illness 57-year-old male with history of CVA, diabetes, renal insufficiency Objective Data Data Vital Signs Date Time Temp Pulse Resp B/P (MAP) Pulse Ox O2 Delivery O2 Flow Rate FiO2 03/15/18 08:00 97.9 64 10 180/81 (114) 100 03/15/18 08:00 64 03/15/18 06:00 70 15 196/88 (124) 100 03/15/18 06:00 70 03/15/18 05:10 18 03/15/18 05:00 68 12 194/84 (120) 98 03/15/18 04:00 68 03/15/18 04:00 98.1 68 17 179/82 (114) 99 03/15/18 03:00 65 11 160/77 (104) 100 03/15/18 02:00 98.5 55 14 163/70 (101) 100 03/15/18 02:00 55 03/15/18 01:00 97.9 59 16 179/85 (116) 98 03/15/18 00:00 98.5 56 12 164/78 (106) 100 03/15/18 00:00 56 03/14/18 23:00 58 14 164/75 (104) 99 03/14/18 22:00 69 15 194/90 (124) 99 03/14/18 22:00 69 03/14/18 21:00 67 15 167/75 (105) 99 03/14/18 20:00 63 03/14/18 20:00 98.2 63 11 180/80 (113) 100 03/14/18 19:00 98.6 61 11 176/75 (108) 100 03/14/18 18:00 58 11 147/69 (95) 100 03/14/18 18:00 58 03/14/18 17:00 60 15 165/75 (105) 100 -: 03/15/18 0405 03/15/18 0405 Physical Exam General Appearance: Well Developed, Well Nourished Neck Neck Exam: Neck Supple Pulmonary Resp Exam: Clear Bilaterally, Breath Sounds Equal Cardiology CV Exam: Regular, Normal Sinus Rhythm Gastrointestinal/Abdomen GI Exam: Soft, Non-Tender, Bowel Sounds Present Extremeties Extremities Exam: No Edema Neurologic Neuro Exam: Alert Assessment/Plan Problem List: (1) CKD (chronic kidney disease) stage 3, GFR 30-59 ml/min ICD Codes: N18.3 - Chronic kidney disease, stage 3 (moderate) Plan: Patient creatinine declined, with IV hydration He may have diabetic kidney disease Potassium and creatinine will decline now creatinine is 1.4 C3 slightly low TRINITY is pending (2) Hyperkalemia ICD Codes: E87.5 - Hyperkalemia Status: Resolved Plan: This has resolved (3) Hypertension ICD Codes: I10 - Essential (primary) hypertension Plan: Continue to monitor (4) Diabetes ICD Codes: E11.9 - Type 2 diabetes mellitus without complications Status: Chronic Plan: On insulin Problem Qualifiers (1) Hypertension: Qualified Codes: I10 - Essential (primary) hypertension (2) Diabetes: Elizabeth Lowery MD March 15, 2018 16:15
[2018-03-15] MEDS: ATORVASTATIN 40 MG TAB PO SCH (20:16)
[2018-03-15] MEDS: CARVEDILOL 12.5 MG TAB PO SCH (20:16)
[2018-03-16] VITALS (7 sets, daily range): BP systolic 112–204; BP diastolic 58–93; PULSE 51–69; RESP 8–31; TEMP 97.5–98.4; O2SAT 94–100
[2018-03-16] MEDS: SODIUM CHLOR 0.45% 1000 ML INJ 1,000 ML IV SCH ×3 (00:13→18:40)
[2018-03-16] MEDS: oxyCODONE/ACETAMINOPHEN 10 MG/325 MG TAB PO PRN ×6 (02:12→23:08)
[2018-03-16] MEDS: CHLORHEXIDINE GLUCONATE 2 % 1 PACK (2 CLOTHS) TOP SCH (04:00)
[2018-03-16] MEDS: cloNIDine HCL 0.2 MG TAB PO PRN ×2 (04:21→23:07)
[2018-03-16] MEDS: HEPARIN SODIUM - SQ 10,000 UNITS/ML VIAL SQ SCH ×3 (06:11→23:08)
[2018-03-16] MEDS: INSULIN ASPART SUPPLEMENTAL SCALE SQ SCH ×4 (08:00→21:00)
[2018-03-16] MEDS ORDERED: hydrALAZINE HCL 25 MG TAB PO SCH (09:00)
[2018-03-16] MEDS: CARVEDILOL 12.5 MG TAB PO SCH ×2 (09:00→23:07)
--- NOTE | 2018-03-16 09:22 | HHI.PR ---
Subjective Remarks The pt was feeling well. He said that he didn't feel particularly weak and his speech seemed normal. He said he still has neuropathy. Has been urinating a lot. No acute complaints. Objective Vitals Vital Signs Date Time Temp Pulse Resp B/P (MAP) Pulse Ox O2 Delivery O2 Flow Rate FiO2 03/16/18 08:24 99 03/16/18 08:00 97.8 51 8 112/58 (76) 99 03/16/18 08:00 51 03/16/18 04:14 20 03/16/18 04:00 98.4 69 8 204/93 (130) 100 03/16/18 04:00 69 03/16/18 00:00 97.5 65 31 153/63 (93) 100 03/16/18 00:00 65 03/15/18 20:00 56 03/15/18 20:00 97.8 56 15 175/81 (112) 100 03/15/18 16:00 59 03/15/18 16:00 98.0 59 15 156/71 (99) 100 03/15/18 12:00 61 I/O 03/15/18 03/15/18 03/15/18 03/16/18 03/16/18 03/16/18 07:00 15:00 23:00 07:00 15:00 23:00 Intake Total 600 ml 1700 ml Output Total 2100 ml 1250 ml 3200 ml Balance -2100 ml -650 ml -1500 ml Intake Oral 600 ml 700 ml IV Total 1000 ml Output Urine Total 2100 ml 1250 ml 3200 ml # Bowel Movements 0 0 Result Diagram: 03/15/18 0405 03/15/18 0405 Imaging Last Impressions Renal Ultrasound 03/14/18 Signed Impressions: CONCLUSION: 1. No evidence of hydronephrosis. 2. There appears to be some focal cortical scarring involving the mid to upper pole the left kidney. If clinically indicated, CT scan of the abdomen could be performed for further evaluation with IV contrast. This could be performed on a nonemergent outpatient basis. 3. Diffuse enlargement of the prostate gland. Head Magnetic Resonance Angiography 03/14/18 Signed Impressions: CONCLUSION: 1. Occlusion of the right internal carotid artery. 2. Unremarkable MRA of the brain. Carotid Artery Ultrasound 03/14/18 Signed Impressions: CONCLUSION: 1. Right Internal Carotid Artery: Occluded. 2. Left Internal Carotid Artery: Patent. Brain MRI 03/14/18 0000 Signed Impressions: CONCLUSION: 1. Findings suggest a focal subacute nonhemorrhagic infarct involving the left mid parietal lobe. 2. Decreased signal along the superior left cerebellar hemisphere on the SWI i mages suggestive of microhemorrhage in an area measuring 3.6 x 2.0 cm. 3. Possible small punctate microhemorrhage in the left occipital lobe. 4. Chronic white matter changes bilaterally suggestive of ischemic demyeliniza tion. 5. Bilateral cortical atrophy. Objective Remarks GENERAL: Well-nourished, well-developed patient. SKIN: Warm and dry. HEAD: Normocephalic. EYES: No scleral icterus. No injection or drainage. NECK: Supple, trachea midline. No JVD or lymphadenopathy. CARDIOVASCULAR: Regular rate and rhythm without murmurs, gallops, or rubs. RESPIRATORY: Breath sounds equal bilaterally. No accessory muscle use. GASTROINTESTINAL: Abdomen soft, non-tender, nondistended. MUSCULOSKELETAL: No cyanosis, or edema. BACK: Nontender without obvious deformity. NEURO: The patient is alert and oriented to person, place, and time with normal speech. Strength 5/5 in upper and lower extremities. + neuropathy in lower extremities. A/P Assessment and Plan Acute CVA Brain MRI: Findings suggest a focal subacute nonhemorrhagic infarct involving the left mid parietal lobe; Decreased signal along the superior left cerebellar hemisphere suggestive of microhemorrhage in an area measuring 3.6 x 2.0 cm; Possible small punctate microhemorrhage in the left occipital lobe; Chronic white matter changes bilaterally suggestive of ischemic demyelinization. Imaging also revealed an occluded right internal carotid artery. Neurology and vascular surgery consults appreciated. No surgical intervention in the setting of occluded right ICA. - continue Aspirin, Plavix and atorvastatin. - blood pressure control. - telemetry. - follow up with neurology. - PT/ OT. Will need HHC. Acute kidney injury Improving with fluids. DM and HTN likely contributing to CKD. Hyperkalemia resolved. Nephrology consult appreciated. - IV fluid hydration. - avoid nephrotoxins. - follow BMP. - follow up with nephrology. Diabetes mellitus Has type 1 diabetes. - Insulin sliding scale. - Levemir 15 units BID, adjust as needed. - increase gabapentin for neuropathy pain. Hypertension Fluctuates. - Continue home dose of carvedilol and amlodipine. Consider adding hydralazine. - Hold lisinopril due to acute renal failure with hyperkalemia. - clonidine as needed. Coronary artery disease/ PVD No chest pain at this time. - continue cardiac regimen. PPx: Heparin Discharge Planning Anticipate d/c with [facility] in 1-2 days Alexi Baker DO March 16, 2018 09:22
[2018-03-16] MEDS: ASPIRIN 325 MG TAB PO SCH (09:41)
[2018-03-16] MEDS: INSULIN DETEMIR 100 UNITS/ML VIAL SQ SCH ×2 (09:41→23:09)
[2018-03-16] MEDS: DOCUSATE SODIUM 50 MG/SENNA 8.6 MG TAB PO SCH ×2 (09:41→23:06)
[2018-03-16] MEDS: GABAPENTIN 300 MG CAP PO SCH ×3 (09:41→17:04)
[2018-03-16] MEDS: CLOPIDOGREL 75 MG TAB PO SCH (09:41)
[2018-03-16] MEDS: FLUoxetine HCL 20 MG CAP PO SCH (09:41)
[2018-03-16] MEDS: FAMOTIDINE 20 MG/2 ML VIAL IV PUSH SCH (09:42)
[2018-03-16] MEDS: SODIUM CHLORIDE 0.9% FLUSH 10 ML FLUSH IV FLUSH SCH ×2 (09:42→23:09)
[2018-03-16 11:45] LABS: BICARBONATE 26.4 MEQ/L (21.0-32.0); CALCIUM 8.7 MG/DL (8.5-10.1); CREATININE 1.59 MG/DL (0.60-1.30)
--- NOTE | 2018-03-16 15:14 | HHI.NPPN ---
Subjective History of Present Illness 57-year-old male with history of CVA, diabetes, renal insufficiency Objective Data Data Vital Signs Date Time Temp Pulse Resp B/P (MAP) Pulse Ox O2 Delivery O2 Flow Rate FiO2 03/16/18 12:00 97.8 54 14 153/89 (110) 99 03/16/18 12:00 54 03/16/18 08:24 99 03/16/18 08:00 97.8 51 8 112/58 (76) 99 03/16/18 08:00 51 03/16/18 04:14 20 03/16/18 04:00 98.4 69 8 204/93 (130) 100 03/16/18 04:00 69 03/16/18 00:00 97.5 65 31 153/63 (93) 100 03/16/18 00:00 65 03/15/18 20:00 56 03/15/18 20:00 97.8 56 15 175/81 (112) 100 03/15/18 16:00 59 03/15/18 16:00 98.0 59 15 156/71 (99) 100 -: 03/15/18 0405 03/16/18 0959 Physical Exam General Appearance: Well Developed, Well Nourished Neck Neck Exam: Neck Supple Pulmonary Resp Exam: Clear Bilaterally, Breath Sounds Equal Cardiology CV Exam: Regular, Normal Sinus Rhythm Gastrointestinal/Abdomen GI Exam: Soft, Non-Tender, Bowel Sounds Present Extremeties Extremities Exam: No Edema Neurologic Neuro Exam: Alert Assessment/Plan Problem List: (1) CKD (chronic kidney disease) stage 3, GFR 30-59 ml/min ICD Codes: N18.3 - Chronic kidney disease, stage 3 (moderate) Plan: Patient creatinine 1.5, He may have diabetic kidney disease Potassium and creatinine will decline now creatinine is 1.5 C3 slightly low TRINITY is neg SPEP neg Diabetic kidney disease Hemophagic CVA left mid parietal lobe discussed CKD STAGE 3 Diabetes control avoid NSAID'S, Motrin/Aleve/Ibuprofen or similar medications (2) Hyperkalemia ICD Codes: E87.5 - Hyperkalemia Status: Resolved Plan: This has resolved (3) Hypertension ICD Codes: I10 - Essential (primary) hypertension Plan: Continue to monitor (4) Diabetes ICD Codes: E11.9 - Type 2 diabetes mellitus without complications Status: Chronic Plan: On insulin (5) CVA (cerebral vascular accident) ICD Codes: I63.9 - Cerebral infarction, unspecified Plan: as above Problem Qualifiers (1) Hypertension: Qualified Codes: I10 - Essential (primary) hypertension (2) Diabetes: (3) CVA (cerebral vascular accident): Elizabeth Lowery MD March 16, 2018 15:14
[2018-03-16] MEDS: FAMOTIDINE 20 MG TAB PO SCH (23:06)
[2018-03-16] MEDS: ATORVASTATIN 40 MG TAB PO SCH (23:07)
[2018-03-17] VITALS: BP 152/72; PULSE 60; RESP 16; TEMP 98.4; O2SAT 96
[2018-03-17 04:00] VITALS: BP_SYST 121; BP_SYST 152; BP_DIAS 70; BP_DIAS 80; PULSE 62; PULSE 81; RESP 16; TEMP 97.4; TEMP 97.6; O2SAT 92; O2SAT 96
[2018-03-17] MEDS: CHLORHEXIDINE GLUCONATE 2 % 1 PACK (2 CLOTHS) TOP SCH (04:00)
[2018-03-17] MEDS: oxyCODONE/ACETAMINOPHEN 10 MG/325 MG TAB PO PRN ×4 (04:07→17:22)
[2018-03-17] MEDS: SODIUM CHLOR 0.45% 1000 ML INJ 1,000 ML IV SCH ×2 (04:08→13:16)
[2018-03-17 05:06] LABS: BICARBONATE 26.9 MEQ/L (21.0-32.0); CALCIUM 8.6 MG/DL (8.5-10.1); CREATININE 1.58 MG/DL (0.60-1.30)
[2018-03-17] MEDS: HEPARIN SODIUM - SQ 10,000 UNITS/ML VIAL SQ SCH ×2 (05:59→13:12)
[2018-03-17 08:26] VITALS: BP 137/64; PULSE 57; RESP 18; TEMP 97.7; O2SAT 98
[2018-03-17] MEDS: CARVEDILOL 12.5 MG TAB PO SCH (09:09)
[2018-03-17] MEDS: CLOPIDOGREL 75 MG TAB PO SCH (09:09)
[2018-03-17] MEDS: ASPIRIN 325 MG TAB PO SCH (09:10)
[2018-03-17] MEDS: DOCUSATE SODIUM 50 MG/SENNA 8.6 MG TAB PO SCH (09:10)
[2018-03-17] MEDS: FAMOTIDINE 20 MG TAB PO SCH (09:10)
[2018-03-17] MEDS: GABAPENTIN 300 MG CAP PO SCH ×3 (09:10→17:21)
[2018-03-17] MEDS: SODIUM CHLORIDE 0.9% FLUSH 10 ML FLUSH IV FLUSH SCH (09:10)
[2018-03-17] MEDS: FLUoxetine HCL 20 MG CAP PO SCH (09:10)
[2018-03-17] MEDS: INSULIN ASPART SUPPLEMENTAL SCALE SQ SCH ×3 (09:11→17:27)
[2018-03-17] MEDS: INSULIN DETEMIR 100 UNITS/ML VIAL SQ SCH (09:11)
[2018-03-17 12:01] VITALS: BP 129/59; PULSE 61; RESP 18; TEMP 97.8; O2SAT 97
[2018-03-17] MEDS ORDERED: AMLO10 PO (14:08)
--- NOTE | 2018-03-17 14:09 | HHI.DCPOC ---
Discharge Care Plan Diagnosis: (1) CVA (cerebral vascular accident) (2) Hypertension (3) CKD (chronic kidney disease) stage 3, GFR 30-59 ml/min (4) Hyperkalemia (5) Diabetes Goals to Promote Your Health * To prevent worsening of your condition and complications * To maintain your health at the optimal level Directions to Meet Your Goals Take your medications as prescribed Follow your dietary instruction Follow activity as directed Keep your appointments as scheduled Take your immunizations and boosters as scheduled If your symptoms worsen call your PCP, if no PCP go to Urgent Care Center or Emergency Room Smoking is Dangerous to Your Health. Avoid second hand smoke Call the 24-hour hour crisis hotline for domestic abuse at [address] MD March 17, 2018 14:09
--- NOTE | 2018-03-17 14:16 | HHI.DS ---
Discharge Summary Admission Date March 14, 2018 at 03:08 Discharge Date: March 17, 2018 Admitting Diagnosis Hyperkalemia CVA (1) CVA (cerebral vascular accident) ICD Code: I63.9 - Cerebral infarction, unspecified (2) CKD (chronic kidney disease) stage 3, GFR 30-59 ml/min ICD Code: N18.3 - Chronic kidney disease, stage 3 (moderate) (3) Hypertension ICD Code: I10 - Essential (primary) hypertension (4) Diabetes ICD Code: E11.9 - Type 2 diabetes mellitus without complications Status: Chronic (5) Hyperkalemia ICD Code: E87.5 - Hyperkalemia Status: Resolved Procedures None Brief History - From Admission HPI from the admitting physician 57-year-old gentleman with history of diabetes, coronary artery disease, dyslipidemia, hypertension, multiple CVAs, presented to emergency department at the [facility] with complaints of right-sided weakness and slurred speech. The patient has associated symptoms of 45 minutes of slurred speech that resolved on presentation to emergency department. His right-sided weakness also resolved. Per EMS and medical records reports the symptoms has resolved en rout to the hospital at [place]. Patient has been taking aspirin and Plavix. He denies any head trauma headaches, visual changes, fever, confusion, neurological deficit or any other symptoms. In emergency at [facility] he was found to be in acute renal failure with creatinine of 2.45 and potassium level of 6.9. He has been transferred to [facility] for higher level of care and nephrology consultation. CBC/BMP: 03/15/18 0405 03/17/18 0355 Significant Findings Laboratory Tests Test 03/15/18 04:05 03/16/18 09:59 03/17/18 03:55 Red Blood Count 4.32 MIL/MM3 (4.50-5.90) Monocytes (%) (Auto) 8.5 % (0.0-8.0) Eosinophils (%) (Auto) 5.7 % (0.0-4.0) Blood Urea Nitrogen 25 MG/DL (7-18) 22 MG/DL (7-18) 25 MG/DL (7-18) Creatinine 1.46 MG/DL (0.60-1.30) 1.59 MG/DL (0.60-1.30) 1.58 MG/DL (0.60-1.30) Random Glucose 56 MG/DL (74-106) 193 MG/DL (74-106) 38 MG/DL (74-106) Alkaline Phosphatase 42 U/L (45-117) Chloride Level 112 MEQ/L (98-107) 108 MEQ/L (98-107) Estimat Glomerular Filtration Rate 50 ML/MIN (>89) 45 ML/MIN (>89) 46 ML/MIN (>89) Imaging Last Impressions Renal Ultrasound 03/14/18 Signed Impressions: CONCLUSION: 1. No evidence of hydronephrosis. 2. There appears to be some focal cortical scarring involving the mid to upper pole the left kidney. If clinically indicated, CT scan of the abdomen could be performed for further evaluation with IV contrast. This could be performed on a nonemergent outpatient basis. 3. Diffuse enlargement of the prostate gland. Head Magnetic Resonance Angiography 03/14/18 Signed Impressions: CONCLUSION: 1. Occlusion of the right internal carotid artery. 2. Unremarkable MRA of the brain. Carotid Artery Ultrasound 03/14/18 Signed Impressions: CONCLUSION: 1. Right Internal Carotid Artery: Occluded. 2. Left Internal Carotid Artery: Patent. Brain MRI 03/14/18 Signed Impressions: CONCLUSION: 1. Findings suggest a focal subacute nonhemorrhagic infarct involving the left mid parietal lobe. 2. Decreased signal along the superior left cerebellar hemisphere on the SWI i mages suggestive of microhemorrhage in an area measuring 3.6 x 2.0 cm. 3. Possible small punctate microhemorrhage in the left occipital lobe. 4. Chronic white matter changes bilaterally suggestive of ischemic demyeliniza tion. 5. Bilateral cortical atrophy. PE at Discharge GENERAL: Well-nourished, well-developed patient. SKIN: Warm and dry. HEAD: Normocephalic. EYES: No scleral icterus. No injection or drainage. NECK: Supple, trachea midline. No JVD or lymphadenopathy. CARDIOVASCULAR: Regular rate and rhythm without murmurs, gallops, or rubs. RESPIRATORY: Breath sounds equal bilaterally. No accessory muscle use. GASTROINTESTINAL: Abdomen soft, non-tender, nondistended. MUSCULOSKELETAL: No cyanosis, or edema. BACK: Nontender without obvious deformity. NEURO: The patient is alert and oriented to person, place, and time with normal speech. Strength 5/5 in upper and lower extremities. + neuropathy in lower extremities. Pt update on day of discharge Reports he is feeling okay. Feels to be back at baseline. Hospital Course 57-year-old male initially transferred from [facility] for acute renal failure with hyperkalemia. Acute CVA Brain MRI: Findings suggest a focal subacute nonhemorrhagic infarct involving the left mid parietal lobe; Decreased signal along the superior left cerebellar hemisphere suggestive of microhemorrhage in an area measuring 3.6 x 2.0 cm; Possible small punctate microhemorrhage in the left occipital lobe; Chronic white matter changes bilaterally suggestive of ischemic demyelinization. Imaging also revealed an occluded right internal carotid artery. Neurology and vascular surgery consults appreciated. No surgical intervention in the setting of occluded right ICA. - continue Aspirin, Plavix and atorvastatin. - blood pressure control. Acute kidney injury Improving with fluids. DM and HTN likely contributing to CKD. Hyperkalemia resolved. Nephrology consult appreciated. -Patient treated with IV fluid. Renal functions improved. He is to follow-up outpatient with his PCP and nephrology. Diabetes mellitus Has type 1 diabetes. - Insulin sliding scale. - Levemir 15 units BID, adjust as needed. - gabapentin for neuropathy pain. Hypertension Fluctuates. - Continue home dose of carvedilol and amlodipine. - Hold lisinopril due to recent acute renal failure with hyperkalemia. Coronary artery disease/ PVD No cardiovascular complaints. - continue cardiac regimen. Pt Condition on Discharge: Good Discharge Disposition: Discharge Home Discharge Time: <= 30 minutes Discharge Instructions DIET: Follow Instructions for: Diabetic Diet Activities you can perform: Regular-No Restrictions Follow up Referrals: PCP Follow-up New Medications: Amlodipine (Norvasc) 10 Mg Tab 10 MG PO DAILY, #30 TAB Continued Medications: Aspirin (Aspirin) 325 Mg Tab 325 MG PO DAILY, #30 TAB 0 Refills Atorvastatin (Atorvastatin) 80 Mg Tab 80 MG PO HS for Cholesterol Management, #30 TAB 0 Refills Carvedilol (Carvedilol) 25 Mg Tab 25 MG BID, #60 TAB 0 Refills Clopidogrel (Clopidogrel) 75 Mg Tab 75 MG PO DAILY for Blood Clot Prevention, #30 TAB 0 Refills Cyproheptadine (Cyproheptadine) 4 Mg Tab 4 MG PO DAILY for Allergy Management, #90 TAB 0 Refills Fenofibrate (Fenofibrate) 160 Mg Tab 160 MG PO DAILY, #30 TAB 0 Refills Fish Oil-Cholecalciferol ([place]-3 Fish Oil/Vitamin) 1,000-1,000 Mg Cap 1 CAP PO TID for Nutritional Supplement, CAP 0 Refills Fluoxetine (Fluoxetine) 20 Mg Capsule 20 MG PO DAILY, #30 CAP 0 Refills Gabapentin (Gabapentin) 300 Mg Cap 300 MG PO QID, #60 CAP 0 Refills Hydrocodone-Acetaminophen (Hydrocodone-Acetaminophen) 10-325 mg Tab 1 TAB PO Q4H PRN for PAIN, TAB 0 Refills Insulin Glargine Inj (Lantus Inj) 1,000 Unit/10 Ml Vial 34 UNITS SQ HS for Blood Sugar Management, VIAL 0 Refills Insulin Lispro (Human) Inj (Humalog Inj) 1,000 Unit/10 Ml Vial 5-10 UNITS SQ ACHS for Blood Sugar Management, #1 VIAL 0 Refills Max dose at bedtime:( )units; sugars < 70,(0)units; sugars 150-199,(5)units; sugars 200-249,(10)units; sugars 250-299,(15)units; sugars 300-349,(20)units; sugars more than 349,(25)units. Discontinued Medications: Lisinopril (Lisinopril) 10 Mg Tab 10 MG PO BID, #30 TAB 0 Refills Metoclopramide (Metoclopramide) 5 Mg Tab 5 MG PO QID, TAB [address] MD March 17, 2018 14:16
== END 2018-03-17 18:28 | disposition home or self-care (01) | DRG 682 ==
LOC: HIMN 03-14 03:08 → N05B 03-16 18:19
PROVIDERS: ADMIT Family Medicine; ATTEND Family Medicine
DX: N17.9 Acute kidney failure, unspecified (principal); I63.9 Cerebral infarction, unspecified; I69.351 Hemiplegia and hemiparesis following cerebral infarction affecting right dominant side; E10.22 Type 1 diabetes mellitus with diabetic chronic kidney disease; E10.42 Type 1 diabetes mellitus with diabetic polyneuropathy; N18.3 Chronic kidney disease, stage 3 (moderate); E10.51 Type 1 diabetes mellitus with diabetic peripheral angiopathy without gangrene; E10.319 Type 1 diabetes mellitus with unspecified diabetic retinopathy without macular edema; E10.649 Type 1 diabetes mellitus with hypoglycemia without coma; E78.5 Hyperlipidemia, unspecified; E87.5 Hyperkalemia; F17.210 Nicotine dependence, cigarettes, uncomplicated; I12.9 Hypertensive chronic kidney disease with stage 1 through stage 4 chronic kidney disease, or unspecified chronic kidney disease; I25.10 Atherosclerotic heart disease of native coronary artery without angina pectoris; I65.21 Occlusion and stenosis of right carotid artery; K59.00 Constipation, unspecified; N40.0 Benign prostatic hyperplasia without lower urinary tract symptoms; Z79.4 Long term (current) use of insulin; Z79.82 Long term (current) use of aspirin; Z95.1 Presence of aortocoronary bypass graft; Z79.02 Long term (current) use of antithrombotics/antiplatelets
CPT/HCPCS: 70544; 70551; 76775; 80048; 80053; 81001; 82570; 82948; 83735; 84100; 84156; 84165; 85025; 86038; 86160; 87641; 93005; 93880; J1610; J1644; J1815; J7030